=== PATIENT | male | born 1965 | race Caucasian/White ===

== ENCOUNTER 2019-04-24 11:34 | Day surgery (SDC) | payer OTHER, SELFPAY ==
[2019-04-24] VITALS (12 sets, daily range): BP systolic 88–112; BP diastolic 51–73; PULSE 44–60; RESP 11–16; TEMP 36.1–36.7; O2SAT 96–100; BMI 27.1
[2019-04-24] MEDS: SODIUM CHLORIDE 0.9% 1,000 ML 200 ML IV (12:30)
--- NOTE | 2019-04-24 12:58 | PM.HP.1 ---
History of Present Illness History of Present Illness Date Patient Seen: 04/24/19 Time Patient Seen: 12:58 Chief complaint: [id number] SCREENING COLONOSCOPY Narrative: 54-year-old white male who has never had a colonoscopy is asymptomatic and is here for his 1st screening colonoscopy he has no melena and no hematochezia. He has no difficulty with his bowel movements and has no abdominal pain. Patient History Family & Social History Social History: household members spouse Meds Home Medications and Allergies Allergies Allergy/AdvReac Type Severity Reaction Status Date / Time grass pollen Allergy Verified 04/24/19 11:52 Poultry Allergy Verified 04/24/19 11:52 Review of Systems Review of Systems ROS Unobtainable: All systems reviewed & are unremarkable except as noted in HPI and below Exam Vital Signs (past 8 hours): - 04/24/19 11:52 Temperature 98.0 F Pulse Rate 54 L Respiratory Rate 14 Blood Pressure 112/70 Pulse Oximetry 100 Oxygen Delivery Method Room Air Narrative Exam Narrative: Patient is asymptomatic. Lungs are clear with no rales or wheezes Heart regular rhythm no murmur Abdomen soft nontender no organomegaly no masses Rectal will be done at colonoscopy Assessment & Plan Assessment & Plan narrative: Patient is here for his 1st screening colonoscopy. I explained the nature of the procedure and the purpose. Patient understands risks of bleeding perforation etc. He has no unanswered questions.
[2019-04-24] MEDS: fentaNYL 250 MCG/5 ML INJ IV (13:36)
--- NOTE | 2019-04-24 13:36 | PM.OP.ENDO ---
Operative Date/Time/Diagnoses Date of procedure: 04/24/19 Time of procedure: 13:36 Pre-op diagnosis: Screening colonoscopy Post-op diagnosis: same Procedure & Clinicians Study performed: Colonoscopy to ascending colon uncertain if cecum was visualized. Same procedure as scheduled: Yes Surgeon: Byron Mims Procedure Notes SCOAP/Timeout: This was done Procedure in detail: The patient was given a total of 8 mg of Versed and 250 micro g of fentanyl throughout this procedure and he remained somewhat uncomfortable with those large doses of medication. He was properly identified during surgical pause. The flexible fiberoptic colonoscope inserted transanally to the ascending colon possibly the cecum was viewed but I could not be certain. The patient was moving and I decided to abort the colonoscopy because of his discomfort. He was given an unusually large amount of medication. His colonoscopy revealed no abnormalities. No polyps no tumors no ulcerations. If colonoscopy is entertained in the future I would recommend a general anesthetic. Scope withdrawal time: 12 Sedation minutes: 27 Specimen(s): none sent Complications: none Impression: Normal colon Post-procedure Recommendations: Colonscopy in 10 years Follow up: as needed Disposition: PACU
[2019-04-24] MEDS: MIDAZOLAM 5 MG/5 ML VIAL IV (13:37)
--- NOTE | 2019-04-24 13:50 | SUR.PHASEI ---
[id number] Dr. Mims here, wants to speak to patient prior to discharge; pt sleeping, did not disturb. resp even and regular,
--- NOTE | 2019-04-24 14:33 | SUR.PHASEI ---
Sleeping, arouses easily, sips of water given. Tolerating PO well.
== END 2019-04-24 15:45 | disposition home or self-care (01) ==
PROVIDERS: PCP Nurse Practitioner Family; Visit Provider Surgery
PROC: 0DJD8ZZ Inspection of Lower Intestinal Tract, Via Natural or Artificial Opening Endoscopic (ICD-10-PCS; CPT 45378; principal; 2019-04-24 13:00)
DX: Z12.11 Encounter for screening for malignant neoplasm of colon (principal)
CPT/HCPCS: 45378; 99152; J2250; J3010